=== PATIENT | female | born 1950 | race Caucasian/White ===

== ENCOUNTER 2020-09-17 15:24 | Outpatient (CLI) | payer OTHER, SELFPAY ==
--- NOTE | 2020-09-17 15:29 | MM_ITS ---
WS: [id number] BILATERAL SCREENING DIGITAL MAMMOGRAM WITH CAD HISTORY: SCREENING COMPARISON: 02/17/2019 and 11/06/2016 Bilateral CC and MLO views submitted. Computer aided detection analyzed. Breast composition: There are scattered areas of fibroglandular density. No suspicious masses, microc alcifications or architectural distortion. Bilateral vascular calcifications. MM/[place] [id number] IMPRESSION: BI-RADS: 2-Benign FOLLOW UP: 1 Year Follow-up
== END 2020-09-17 15:25 | disposition home or self-care (01) ==
LOC: RADSHAW 15:28
PROVIDERS: PCP Family Medicine; Visit Provider Family Medicine
DX: Z12.31 Encounter for screening mammogram for malignant neoplasm of breast (principal)
CPT/HCPCS: 77067

== ENCOUNTER 2021-08-29 14:41 | Outpatient (CLI) | payer OTHER, MEDICARE, SELFPAY ==
--- NOTE | 2021-08-29 15:00 | XR_ITS ---
WS: [id number] DEXA (DUAL ENERGY X-RAY ABSORPTIOMETRY) Bone mineral density was performed using a [employer] machine. HISTORY: POSTMENOPAUSAL COMPARISON: None available. Lumbar spine BMD (L1-L4): 0.853 g/cm2 T score: -2.7 Z score: -1.2 Total hip BMD: Left: 0.829 g/cm2. T score: -1.4 Z score: -0.1 Right: 0.841 g/cm2. T score: -1.3 Z score: 0.0 10 year probability of a major osteoporotic fracture is 10%. XR/XR DEXA axial skeleton* [id number] IMPRESSION: OSTEOPOROSIS based upon the WHO classification for females.
--- NOTE | 2021-08-29 15:00 | MM_ITS ---
WS: [id number] BILATERAL 3D TOMOSYNTHESIS DIGITAL SCREENING MAMMOGRAPHY WITH CAD CLINICAL INFORMATION: SCREENING HISTORY: Screening mammogram. No current complaints. COMPARISON: September 17, 2020 TECHNIQUE: Bilateral CC and MLO views. FINDINGS: The breasts are composed of heterogeneous fibroglandular density tissue, which can limit the detectio n of small underlying mass lesions. Vascular calcification. A few incidental punctate calcifications. No suspicious mass, asymmetry, calcifications, or architectural distortion. No evidence of malignanc y. MM/[place] [id number] IMPRESSION: BI-RADS: 2-Benign FOLLOW UP: 1 Year Follow-up Recommend return to annual screening mammography.
== END 2021-08-29 14:42 | disposition home or self-care (01) ==
LOC: RAD 14:46
PROVIDERS: PCP Family Medicine; Visit Provider Family Medicine
DX: Z12.31 Encounter for screening mammogram for malignant neoplasm of breast (principal); Z78.0 Asymptomatic menopausal state
CPT/HCPCS: 77063; 77067; 77080

== ENCOUNTER → 2022-06-08 07:53 | Outpatient (BNVA) | payer OTHER, MEDICARE, SELFPAY | PROVIDERS: PCP Family Medicine; Visit Provider Family Medicine | DX: Z00.00 Encounter for general adult medical examination without abnormal findings (principal) | CPT/HCPCS: 80048; 80061 ==

== ENCOUNTER 2022-08-31 15:26 | Outpatient (CLI) | payer OTHER, MEDICARE, SELFPAY ==
--- NOTE | 2022-08-31 15:36 | MM_ITS ---
WS: [id number] BILATERAL 3D TOMOSYNTHESIS DIGITAL SCREENING MAMMOGRAPHY WITH CAD CLINICAL INFORMATION: SCREENING HISTORY: Screening mammogram. No current complaints. COMPARISON: 2021 TECHNIQUE: Bilateral CC and MLO views. FINDINGS: The breasts are composed of heterogeneous fibroglandular density tissue, which can limit the detectio n of small underlying mass lesions. No suspicious mass, asymmetry, calcifications, or architectural d istortion. No evidence of malignancy. Vascular calcification. Punctate and lucent centered calcificat ions. MM/[place] [id number] IMPRESSION: BI-RADS: 2-Benign FOLLOW UP: 1 Year Follow-up Recommend return to annual screening mammography.
== END 2022-08-31 15:27 | disposition home or self-care (01) ==
LOC: RAD 15:32
PROVIDERS: PCP Family Medicine; Visit Provider Family Medicine
DX: Z12.39 Encounter for other screening for malignant neoplasm of breast (principal)
CPT/HCPCS: 77063; 77067

== ENCOUNTER 2023-05-05 16:37 | Emergency (ER) | payer MEDICARE, SELFPAY ==
[2023-05-05 16:41] VITALS: BP 204/117; PULSE 81; RESP 17; TEMP 36.9; O2SAT 97; BMI 25.7
--- NOTE | 2023-05-05 16:49 | XRR_ITS ---
PROCEDURE INFORMATION: Exam: XR Thoracic Spine Exam date and time: 05/05/2023 4:58 PM Age: 72 years old Clinical indication: Injury or trauma; Fall; Blunt trauma (contusions or hematomas) TECHNIQUE: Imaging protocol: Radiologic exam of the thoracic spine. Views: 3 views. COMPARISON: CR (CHEST, ) 05/05/2023 4:58 PM FINDINGS: Bones/joints: Multilevel disc space narrowing and productive degenerative endplate changes throughout the spine. Soft tissues: Unremarkable. Lungs: Bibasilar atelectasis versus minimal infiltrate. XR/XR thoracic spine 3V* [id number] IMPRESSION: 1. Multilevel disc space narrowing and productive degenerative endplate changes throughout the spine. 2. Bibasilar atelectasis versus minimal infiltrate.
--- NOTE | 2023-05-05 16:49 | ED_ITS ---
HPI - Fall General: Chief Complaint: Fall Stated Complaint: fall Time Seen by Provider: 05/05/23 16:46 History of Present Illness: 72-year-old female presents emerged part with complaints of back pain. She states that she was climbing out of the back of a pickup truck when she slipped falling backwards onto the ground approximately 2 feet. She states that she hit the ground with just her back and denies loss of consciousness or head injury. She states she feels like the wind was knocked out of her and it hurts to take a deep breath. She states she was able to stand up and ambulate to her house and when her came in she stated that she was having 10 out of 10 back pain and needed to come to the hospital to be evaluated. Review of Systems Musc: Reports: back pain Physical Exam Narrative: EXAM NARRATIVE: Constitutional: the patient appears well nourished and with normal development. Vital signs reviewed as documented. HENMT: Normocephalic, atraumatic. External ears normal appearance without drainage. Nose without drainage, normal appearance. Mucus membranes moist. Neck is supple, No jugular venous distension, trachea is midline, no appreciable carotid bruits. No lymphadenopathy. No meningeal signs. Flexion, extension and lateral rotation is without pain. Eyes: Pupils are equal, round, reactive to light and accommodation. No scleral icterus. Extra-ocular movement are intact. Thorax is symmetrical and with equal rise and fall with respirations. Resp: Lungs are clear to auscultation. No wheezes, rales, crackles or ronchi at present. Cardio: Regular rate and rhythm. Positive S1, S2. No appreciable murmurs, rubs or gallops. GI: Abdominal exam reveals normal bowel sounds to all quadrants. No organomegaly. No obvious palpable masses noted. No hepatomegally appreciated. Soft, non-tender to palpation. Extremity: Extremities are non-edematous and both femoral and pedal pulses are 2+ and equal bilaterally. Moves all extremities well, sensation in all extremities. Neuro: Alert and oriented x4, person, place, time and situation. Cranial nerves II through XII are grossly intact, there is no focal neurological deficits that I can appreciate at present. Motor strength in the upper and lower extremities are equal and bilateral 5/5. Psych: Cooperative, calm, normal thought process, appropriate judgment. Skin: No lesions, rashes. No gross abnormalities noted. Back: Symmetrical, no obvious deformity, No CVA tenderness. No palpable step- offs, no crepitus, normal vertebral alignment. She does have paraspinal strap muscle tenderness with obvious muscle spasm to the right side. Course Reevaluation(s): Reevaluation #1: I discussed the patient's radiographic findings and she states that her pain is much better after receiving the morphine and Zofran. I will provide her p.o. pain medication and muscle relaxer intravenously prior to discharge and I will provide her written prescriptions at discharge. Time: 19:33 Vital Signs: Vital signs: Vital Signs Temperature 98.5 F 05/05/23 16:41 Pulse Rate 90 05/05/23 18:16 Respiratory Rate 16 05/05/23 18:28 Blood Pressure 180/80 05/05/23 18:16 Pulse Oximetry 98 05/05/23 18:29 Oxygen Delivery Me thod Room Air 05/05/23 18:29 MDM - Fall Medical Decision Making 72-year-old female presents emergency department secondary to a fall and complaints of back pain. She denies loss of consciousness we will obtain radiographic examination provide her muscle relaxer and pain medication. Medical Records I reviewed the patient's medical records. Lab Data Radiology Impressions Cervical Spine X-Ray 05/05/23 16:49 IMPRESSION: 1. Negative for fracture or dislocation. 2. Multilevel [id number] largely posterior disc space narrowing throughout the spine. Lumbar Spine X-Ray 05/05/23 16:49 IMPRESSION: No acute findings. Thoracic Spine X-Ray 05/05/23 16:49 IMPRESSION: 1. Multilevel disc space narrowing and productive degenerative endplate changes throughout the spine. 2. Bibasilar atelectasis versus minimal infiltrate. Chest X-Ray 05/05/23 16:50 IMPRESSION: 1. Bibasilar atelectasis versus minimal infiltrate. 2. Left lower lobe suspected calcified granuloma. All radiology interpretation(s) finalized by discharge Discharge Plan Discharge Patient Disposition: Home Clinical Impression: Acute back pain, Accidental fall Condition: Stable Prescriptions: New hydrocodone-acetaminophen 5-325 mg tablet 1 tab PO Q8H PRN (Reason: pain) Qty: 14 0RF cyclobenzaprine 10 mg tablet 10 mg PO Q8H Qty: 14 0RF No Action alendronate 70 mg tablet 70 mg PO .once a week Paxlovid 300 mg (150 mg x 2)-100 mg tablets,dose pack See Rx Instructions PO .COMPLEX Qty: 30 0RF Rx Instructions: take TWO 150 mg tablets of nirmatrelvir with ONE 100 mg tablet of ritonavir twice daily for 5 days PO Discharge Orders: Discharge ED (Routine); Ordered 05/05/23 Ordered By: Taj Ramos Referrals: Sabino Flores MD [Primary Care Provider] - Discharge Diet: Advance as tolerated Discharge Activity: Resume usual activity Patient Instructions: Opioid Safety, Pain Management Activity Restrictions/Additional Instructions: Activity Restrictions/Additional Instructions: Thank you for choosing [facility] for your healthcare needs today. Please realize that you were seen in the Emergency Department and that we are providing you with an emergency medical screening exam and this may not be a complete and all inclusive of all the testing and or medical work-up that you may need to determine your ailment or severity of your illness. It is very important that you follow-up as instructed with your Primary care provider or Specialist for additional evaluation and to discuss your medical treatment plan. You may return to the Emergency Department should you have concerns or if your condition changes or worsens in any way. Coding Level of Care Code ED [employer] Checker for Melanie Bautista
--- NOTE | 2023-05-05 16:49 | XRR_ITS ---
PROCEDURE INFORMATION: Exam: XR Cervical Spine Exam date and time: 05/05/2023 4:58 PM Age: 72 years old Clinical indication: Injury or trauma; Fall; Blunt trauma TECHNIQUE: Imaging protocol: Radiologic exam of the cervical spine. Views: 2 or 3 views. COMPARISON: CR (CHEST, ) 05/05/2023 4:58 PM FINDINGS: Bones/joints: Multilevel [id number]-[id number] largely posterior disc space narrowing throughout the spine. Soft tissues: Unremarkable. XR/XR cervical spine 3V* [id number] IMPRESSION: 1. Negative for fracture or dislocation. 2. Multilevel agiw-ia-rqonxmah largely posterior disc space narrowing throughout the spine.
--- NOTE | 2023-05-05 16:49 | XRR_ITS ---
PROCEDURE INFORMATION: Exam: XR Lumbosacral Spine Exam date and time: 05/05/2023 4:58 PM Age: 72 years old Clinical indication: Injury or trauma; Fall; Blunt trauma (contusions or hematomas) TECHNIQUE: Imaging protocol: Radiologic exam of the lumbosacral spine. Views: 2 or 3 views. COMPARISON: CR (CHEST, ) 05/05/2023 4:58 PM FINDINGS: Bones/joints: Normal. No acute fracture. Normal alignment. Soft tissues: Unremarkable. XR/XR lumbar spine 2-3V* [id number] IMPRESSION: No acute findings.
--- NOTE | 2023-05-05 16:50 | XRR_ITS ---
PROCEDURE INFORMATION: Exam: XR Chest Exam date and time: 05/05/2023 4:58 PM Age: 72 years old Clinical indication: Injury or trauma; Fall; Blunt trauma (contusions or hematomas); Patient HX: Pat[place] fell onto ground from standing in the bed of a truck. C/O chest wall pain with SOB. TECHNIQUE: Imaging protocol: Radiologic exam of the chest. Views: 2 views. COMPARISON: CR (CHEST, ) 05/05/2023 4:58 PM FINDINGS: Lungs: Bibasilar atelectasis versus minimal infiltrate. Left lower lobe suspected calcified granuloma. Pleural spaces: Unremarkable. No pleural effusion. No pneumothorax. Heart/Mediastinum: Unremarkable. No cardiomegaly. Bones/joints: Unremarkable. XR/XR chest 2V* [id number] IMPRESSION: 1. Bibasilar atelectasis versus minimal infiltrate. 2. Left lower lobe suspected calcified granuloma.
[2023-05-05 18:16] VITALS: BP 180/80; PULSE 90; RESP 18; O2SAT 92
[2023-05-05 18:28] VITALS: RESP 16; O2SAT 98
[2023-05-05] MEDS: morphine 4 mg/mL SDV 1 mL IVP (18:28)
[2023-05-05 18:29] VITALS: O2SAT 98
[2023-05-05] MEDS: ondansetron 2 mg/ML SDV 2 mL 4 MG IVP (18:29)
[2023-05-05] MEDS: orphenadrine 30 mg/mL Inj 2 mL 60 MG IVP (19:29)
[2023-05-05] MEDS: HYDROcodone-acetaminophen 10-325 mg Tablet 1 TAB PO (19:30)
[2023-05-05 19:31] VITALS: BP 164/79; PULSE 66; RESP 16; O2SAT 94
[2023-05-05 19:59] VITALS: PULSE 86; RESP 16; O2SAT 93
== END 2023-05-05 19:53 | disposition home or self-care (01) ==
PROVIDERS: Emergency Provider Internal Medicine; PCP Family Medicine
DX: M54.9 Dorsalgia, unspecified (principal); W01.0XXA Fall on same level from slipping, tripping and stumbling without subsequent striking against object, initial encounter
CPT/HCPCS: 71046; 72040; 72072; 72100; 96374; 96375; 99284; J2270; J2360; J2405

== ENCOUNTER 2023-10-24 13:07 | Outpatient (CLI) | payer MEDICARE, SELFPAY ==
--- NOTE | 2023-10-24 13:30 | XR_ITS ---
WS: [id number] SCREENING DEXA SCAN [employer] CLINICAL INFORMATION: follow up COMPARISON: 2021 FINDINGS: The L1-L4 bone mineral density measures 0.870 g/cm2. This corresponds to a T score score of -2.6 and Z score of -1.0. Left femoral neck bone mineral density measures 0.852 g/cm2. This corresponds to a T score of -1.2 an d Z score of 0.2. Right femoral neck bone mineral density measures 0.857 g/cm2. This corresponds to a T score -1.2of an d Z score of 0.3. Mean femoral neck bone mineral density measures 0.854 g/cm2. This corresponds to a T score of -1.2 an d Z score of 0.2. XR/XR DEXA axial skeleton* [id number] IMPRESSION: Osteoporosis lumbar spine at the lower end of the range. Osteopenia femoral nec ks. Patient's FRAX calculated 10 year probability for major osteoporotic fracture i s 10.2% and osteoporotic hip fracture is 1.5%. Bone mineral density lumbar spine increased 2.0% Bone mineral density femoral necks increased 2.3%
--- NOTE | 2023-10-24 14:00 | MM_ITS ---
WS: [id number] BILATERAL 3D TOMOSYNTHESIS DIGITAL SCREENING MAMMOGRAM WITH CAD CLINICAL INFORMATION: screening HISTORY: Screening mammogram. No current complaints. COMPARISON: 08/31/2022 TECHNIQUE: Bilateral CC and MLO. FINDINGS: The breast are composed of extremely dense tissue, which can limit the detection of small underlying mass lesions. No suspicious focal mass, asymmetry, calcifications, or architectural distortion. No ev idence of malignancy. Vascular calcifications. Incidental punctate and lucent centered calcifications . Dense parenchymal pattern bilaterally is stable.Incidental punctate calcifications. MM/[place] [id number] IMPRESSION: BI-RADS: 2-Benign FOLLOW UP: 1 Year Follow-up Recommend return to annual screening mammography.
== END 2023-10-24 13:08 | disposition home or self-care (01) ==
LOC: RAD 13:07
PROVIDERS: PCP Family Medicine; Visit Provider Family Medicine
DX: M81.0 Age-related osteoporosis without current pathological fracture (principal); Z00.00 Encounter for general adult medical examination without abnormal findings; M85.862 Other specified disorders of bone density and structure, left lower leg; M85.861 Other specified disorders of bone density and structure, right lower leg; Z12.31 Encounter for screening mammogram for malignant neoplasm of breast; R92.343 Mammographic extreme density, bilateral breasts; R92.1 Mammographic calcification found on diagnostic imaging of breast
CPT/HCPCS: 77063; 77067; 77080

== ENCOUNTER → 2024-10-15 10:08 | Outpatient (BNVA) | payer MEDICARE, SELFPAY | PROVIDERS: PCP Family Medicine; Visit Provider Family Medicine | DX: Z00.00 Encounter for general adult medical examination without abnormal findings (principal) | CPT/HCPCS: 80053; 80061; 85025 ==

== ENCOUNTER 2024-10-27 08:44 | Outpatient (CLI) | payer MEDICARE, SELFPAY ==
--- NOTE | 2024-10-27 08:40 | MM_ITS ---
WS: [id number] BILATERAL 3D TOMOSYNTHESIS DIGITAL SCREENING MAMMOGRAPHY WITH CAD CLINICAL INFORMATION: screening HISTORY: Screening mammogram. No current complaints. COMPARISON: 2023 TECHNIQUE: Bilateral CC and MLO views. FINDINGS: The breasts are composed of heterogeneous fibroglandular density tissue, which can limit the detection of small underlying mass lesions. No suspicious mass, asymmetry, calcifications, or architectural distortion. No evidence of malignancy. Vascular calcification. MM/MM [facility] tomosynthesis [id number] IMPRESSION: DENSITY: The breasts are heterogeneously dense, which may obscure small masses. BI-RADS: 2 - Benign FOLLOW UP: 1 Year Follow-up Recommend return to annual screening mammography.
== END 2024-10-27 08:45 | disposition home or self-care (01) ==
LOC: RAD 08:45
PROVIDERS: PCP Family Medicine; Visit Provider Family Medicine
DX: Z12.31 Encounter for screening mammogram for malignant neoplasm of breast (principal); R92.333 Mammographic heterogeneous density, bilateral breasts
CPT/HCPCS: 77063; 77067

== ENCOUNTER → 2025-04-02 09:53 | Outpatient (BNVA) | payer MEDICARE, SELFPAY | PROVIDERS: PCP Family Medicine; Visit Provider Family Medicine | DX: R53.83 Other fatigue (principal); I25.10 Atherosclerotic heart disease of native coronary artery without angina pectoris | CPT/HCPCS: 80053; 82306; 82607; 84443; 85025 ==